=== PATIENT | female | born 1965 | race Caucasian/White ===

== ENCOUNTER 2021-11-09 18:24 | Inpatient (IN) ==
[2021-11-09 19:32] LABS: Basophils # (auto) 0.03 K/uL (0-0.2); Basophils % (auto) 0.4 %; Eosinophils # (auto) 0.04 K/uL (0-0.50); Eosinophils % (auto) 0.5 %; Hematocrit (blood only) 38.2 % (34.1-44.9); Hemoglobin 12.9 g/dl (12.0-16.0); Immature Granulocytes # (auto) 0.05 K/uL (0.00-0.02); Immature Granulocytes % (auto) 0.7 %; Lymphocytes # (auto) 1.19 K/uL (1.2-3.4); Lymphocytes % (auto) 16.2 %; Mean Corpuscular Hemoglobin 25.6 pg (25.0-34.0); Mean Corpuscular Hgb Conc 33.8 g/dL (32.0-36.0); Mean Corpuscular Volume 75.9 fL (80.0-100.0); Mean Platelet Volume 10.1 fL (9.4-12.3); Monocytes # (auto) 1.25 K/uL (0.24-0.82); Neutrophils % (auto) 65.2 %; Platelet Count 185 K/uL (130-400); RDW Coefficient of Variation 14.9 % (11.5-14.5); RDW Standard Deviation 40.9 fL (36.4-46.3); Red Blood Count 5.03 M/uL (3.93-5.22); White Blood Count 7.36 K/ul (4.8-10.8)
[2021-11-09 19:53] LABS: Albumin Globulin Ratio 0.9 (0.9-2); Albumin Level 3.4 gm/dl (3.4-5.0); BUN Creatinine Ratio 18.6 (10-20); Bilirubin,Total 0.6 mg/dl (0.2-1.0); Calcium 8.2 mg/dl (8.5-10.1); Creatinine Clr Calc Pharmacy 27.3 ml/min; Est GFR (African American) 34.2 ml/min; Est GFR (Non-African American) 29.5 ml/min; Globulin 3.6 gm/dl (2.5-4.0); Potassium 3.6 mmol/L (3.5-5.1)
[2021-11-09] MEDS ORDERED: SODIUM CHLORIDE 0.9% 1000ML 2,000 ML IV ONE (20:19)
--- NOTE | 2021-11-09 20:25 | Emergency Department Note ---
History of Present Illness General Chief complaint: Diarrhea Stated complaint: DIARRHEA Time Seen by Provider: 11/09/21 19:44 History of Present Illness Maximum Pain Intensity: 0 55-year-old female presents to the ED with a chief complaint of " kidney failure". The patient has been having diarrhea for about a week. She states that it soft stool about 3-4 times per day. The patient had an outpatient work- up today including a CT scan of the abdomen pelvis which showed some gastritis type findings according to the other female in the room with the patient. The patient has had some off-and-on fevers up to 101 according to the person in the room also. Blood work today was performed. The provider on-call called the patient and told him to come to the ER for kidney failure. Stool test were performed as well. Those results are pending. No additional complaints this time. The patient has had a decreased appetite but has been taking fluids. Past Med/Surg History Social History Smoking Status: Never smoker Feels Safe at Home: Yes Review of Systems A total of 10 systems reviewed and were otherwise negative Physical Exam Vital Signs Vital Signs - 24 hr 11/09/21 18:26 Temperature 36.7 C Temperature Source Temporal Artery Scan Pulse Rate 79 Respiratory Rate 18 Blood Pressure 112/72 Blood Pressure Mean 85 Pulse Oximetry 98 Oxygen Delivery Method Room Air Sepsis Recent Fever Within 48 Hours No Sepsis New/Unexplained Change in Mental Status No Sepsis Action Taken by Nursing No Action Required CONSTITUTIONAL/VITAL SIGNS: Reviewed / noted above. GENERAL: Non-toxic in appearance. INTEGUMENTARY: Warm, dry, and [place]. HEAD: Normocephalic. EYES: without scleral icterus or trauma. ENT/OROPHARYNX: clear and moist. LYMPHADENOPATHY/NECK: Is supple without lymphadenopathy or meningismus. RESPIRATORY: Clear to auscultation bilaterally. No increased work of breathing. CARDIOVASCULAR: Regular rate and rhythm. GI/ABDOMEN: Soft and nontender. No organomegaly or pulsatile mass. EXTREMITIES: Warm and well perfused. BACK: No CVA tenderness. NEUROLOGICAL: Intact without focal deficits. PSYCHIATRIC: normal affect. MUSCULOSKELETAL: Normally developed with good muscle tone. TRIAGE NURSING DOCUMENTATION REVIEWED. Course Administered Medications Sodium Chloride (Nss 1000ml) 2,000 mls @ 999 mls/hr IV .Q2H1M ONE Stop: 11/09/21 22:19 Last Admin: 11/09/21 20:29 Dose: 999 mls/hr Documented By: EMB Medical Decision Making Differential Diagnosis Differential includes acute coronary syndrome, myocardial infarction, CVA, TIA, anemia, infection, pneumonia, UTI, pyelonephritis, poor nutrition, dehydration, electrolyte disturbance,hypoglycemia. Medical Records Attestation: I reviewed the patient's medical records. Home Medications Current Medication List: was personally reviewed by me Laboratory Data Attestation: I reviewed the patient's lab results. Result diagrams: 11/09/21 19:23 11/09/21 19:23 Lab Results 11/09/21 11/09/21 Range/Units 19:23 19:23 WBC 7.36 (4.8-10.8) K/ul RBC 5.03 (3.93-5.22) M/uL Hgb 12.9 (12.0-16.0) g/dl Hct 38.2 (34.1-44.9) % MCV 75.9 L (80.0-100.0) fL MCH 25.6 (25.0-34.0) pg MCHC 33.8 (32.0-36.0) g/dL RDW Std Deviation 40.9 (36.4-46.3) fL RDW Coeff of Bobo 14.9 H (11.5-14.5) % Plt Count 185 (130-400) K/uL MPV 10.1 (9.4-12.3) fL Immature Gran % (Auto) 0.7 % Neut % (Auto) 65.2 % Lymph % (Auto) 16.2 % [place] % (Auto) 17.0 % Eos % (Auto) 0.5 % Baso % (Auto) 0.4 % Neut # (Auto) 4.80 (1.4-6.5) K/uL Lymph # (Auto) 1.19 L (1.2-3.4) K/uL [place] # (Auto) 1.25 H (0.24-0.82) K/uL Eos # (Auto) 0.04 (0-0.50) K/uL Baso # (Auto) 0.03 (0-0.2) K/uL Immature Gran # (Auto) 0.05 H (0.00-0.02) K/uL Sodium 123 L (136-145) mmol/L Potassium 3.6 (3.5-5.1) mmol/L Chloride 86 L (98-107) mmol/L Carbon Dioxide 25 (21-32) mmol/L Anion Gap 12 H (3-11) BUN 35 H (6-23) mg/dl Creatinine 1.88 H (0.6-1.2) mg/dl Est Cr Clr Drug Dosing 27.3 ml/min Est GFR ( Amer) 34.2 ml/min Est GFR (Non-Af Amer) 29.5 ml/min BUN/Creatinine Ratio 18.6 (10-20) Glucose 71 (70-99(Fasting)) mg/dl Calcium 8.2 L (8.5-10.1) mg/dl Total Bilirubin 0.6 (0.2-1.0) mg/dl AST 45 H (13-39) U/L ALT 23 (7-52) U/L Alkaline Phosphatase 150 H (34-104) U/L Total Protein 7.0 (6.0-8.3) gm/dl Albumin 3.4 (3.4-5.0) gm/dl Globulin 3.6 (2.5-4.0) gm/dl Albumin/Globulin Ratio 0.9 (0.9-2) Lipase 21 (11-82) U/L MDM Narrative Get it.Patient was sent to the [facility] for abnormal outpatient blood work concerning for kidney failure. The patient has been having diarrhea for about a week. Stool studies are pending per the outpatient provider. The patient CBC was unremarkable. The chemistry panel shows a low sodium of 123. The BUN is 35 and the creatinine is 1.88. AST is mildly elevated. The patient was treated with a liter normal saline IV. A second liter was also started. She was given some p.o. metronidazole for possible C. difficile. The patient will be seen by the hospitalist for further evaluation and care for her hyponatremia and acute kidney injury. Impression & Plan Diarrhea, Acute kidney injury, Acute dehydration, Acute hyponatremia Discharge Plan Visit Data Chief Complaint: Diarrhea Stated Complaint: DIARRHEA ED Provider: Santo Balderas Discharge Problem: Diarrhea, Acute kidney injury, Acute dehydration, Acute hyponatremia Patient Disposition: Being Evaluated by Hospitalist Forms Stand Alone Forms: [facility] Referrals Referrals: Gordy Montenegro, DO [Primary Care Provider] -
[2021-11-09] MEDS ORDERED: metroNIDAZOLE 500 MG TAB PO STA (21:28)
[2021-11-10 02:28] LABS: Influenza A virus by PCR Negative (Neg); Influenza B virus by PCR Negative (Neg); RSV by PCR Negative (Neg); SARS CoV2 RNA(COVID-19) InHosp NEGATIVE (Negative)
--- NOTE | 2021-11-10 03:10 | History and Physical Report ---
DATE OF ADMISSION: 11/10/2021. CHIEF COMPLAINT: Diarrhea. HISTORY OF PRESENT ILLNESS: This is a 55-year-old female with past medical history significant tachycardia, enlarged liver, GERD, presents with ongoing diarrhea since last Tuesday, several episodes a day. Denies any abdominal pain. Stools are loose. Denies any blood in the stool. She had an episode of fever last Tuesday when she went to urgent care, but since then, she has no fever. Denies any nausea or vomiting. Appetite is okay. She is able to eat okay. Denies any chest pain, no shortness of breath, no headache, no dizziness, no earache, no runny nose, no sore throat. No cough. Ambulating okay. No sickness in the family. She says she is COVID vaccinated and boosted. ALLERGIES: SULFA ANTIBIOTICS. PAST MEDICAL HISTORY: As mentioned above. PAST SURGICAL HISTORY: [place] cholecystectomy. MEDICATIONS: The patient is on vitamin D 25 mcg p.o. daily, Advil p.r.n., omeprazole 40 mg p.o. a.m., propranolol 160 mg p.o. p.m., ursodiol 500 mg p.o. b.i.d. FAMILY HISTORY: No family history on file. SOCIAL HISTORY: Single, no smoking, no alcohol, no drug use. REVIEW OF SYSTEMS: As per HPI. Rest of the review of systems is negative. PHYSICAL EXAMINATION: GENERAL: The patient is of moderate build, not in acute distress. VITAL SIGNS: Temperature 36.7, pulse 69, respiratory rate 17, blood pressure 117/71, oxygen 98% on room air. HEENT: Pupils equal, round and reactive to light. Oral mucosa moist. NECK: No JVD or neck masses. CARDIOVASCULAR: S1 and S2 heard. Regular rate and rhythm. No murmur, no gallop. RESPIRATORY SYSTEM: Normal AP diameter. No accessory muscle use. No wheezing, no crackles. ABDOMEN: Soft, bowel sounds present, nontender, no distention. CENTRAL NERVOUS SYSTEM: Cranial nerves II through XII are grossly intact, nonfocal. EXTREMITIES: No edema, no erythema. LABORATORY DATA: WBC 7.3, hemoglobin 12.9, hematocrit 38.2, platelets 185. Sodium 123, potassium 3.6, chloride 86, bicarbonate 25, BUN 35, creatinine 1.8, serum glucose 71, calcium 8.2, total bilirubin 0.6, AST 45, ALT 23, alkaline phosphatase 150, lipase 21. SARS-CoV-2 rapid test negative. The patient had CT scan with IV and oral contrast done as an outpatient showing pancolitis with moderate to marked circumferential thickening of the entire colon, likely infectious, suggest C. diff, but outpatient C. diff came back negative. ASSESSMENT AND PLAN: A 55-year-old female who presents with: 1. Diarrhea, outpatient CAT scan showing pancolitis, but C. diff done as outpatient was negative. We will repeat stools cultures. ER gave a dose of Flagyl We will monitor in the hospital. Consult GI. Monitor stool studies. Empirically start on p.o. vancomycin until stool studies come back. Clear liquid diet, IV fluids.GO consult. 2. Hyponatremia: Sodium 123, probably from the diarrhea. Follow serum osmolality. Check urine osmolality, urine sodium levels. Getting fluids. Repeat labs, BMP q. 6 hours. Consult glass mold repairer in am. Changed fluid to d5w@100ml/hr as repeat sodium was 131. 3. Acute kidney injury: From above, getting fluids. Follow repeat labs in the a.m. 4. History of tachycardia: On propranolol. 5. History of fatty liver. 6. Gastroesophageal reflux disease: On omeprazole. 7. Deep venous thrombosis prophylaxis: Lovenox. DISPOSITION: Closely monitor in the med tele. PT/OT prior to discharge. Social service to help with discharge planning. Job ID: [id number] MTDD
[2021-11-10] MEDS ORDERED: RASPBERRY SYRUP 5 ML UDP PO STA (03:27)
[2021-11-10] MEDS ORDERED: D5W AND NSS 1,000 ML IV SCH (03:27)
[2021-11-10] MEDS ORDERED: NITROGLYCERIN SL 0.4 MG/TAB TAB SL PRN (03:27)
[2021-11-10] MEDS ORDERED: VANCOMYCIN HCL 250 MG/5 ML SOLN PO STA (03:27)
[2021-11-10] MEDS ORDERED: ONDANSETRON INJ 2 MG/ML 2 ML VIAL IV PRN (03:27)
[2021-11-10 06:34] LABS: Basophils # (auto) 0.03 K/uL (0-0.2); Basophils % (auto) 0.6 %; Eosinophils # (auto) 0.04 K/uL (0-0.50); Eosinophils % (auto) 0.8 %; Hematocrit (blood only) 35.7 % (34.1-44.9); Hemoglobin 11.9 g/dl (12.0-16.0); Immature Granulocytes # (auto) 0.04 K/uL (0.00-0.02); Immature Granulocytes % (auto) 0.8 %; Lymphocytes # (auto) 0.93 K/uL (1.2-3.4); Lymphocytes % (auto) 18.4 %; Mean Corpuscular Hemoglobin 25.9 pg (25.0-34.0); Mean Corpuscular Hgb Conc 33.3 g/dL (32.0-36.0); Mean Corpuscular Volume 77.8 fL (80.0-100.0); Mean Platelet Volume 10.7 fL (9.4-12.3); Monocytes # (auto) 0.96 K/uL (0.24-0.82); Neutrophils # (auto) 3.05 K/uL (1.4-6.5); Neutrophils % (auto) 60.4 %; Platelet Count 196 K/uL (130-400); RDW Coefficient of Variation 15.1 % (11.5-14.5); RDW Standard Deviation 42.4 fL (36.4-46.3); Red Blood Count 4.59 M/uL (3.93-5.22); White Blood Count 5.05 K/ul (4.8-10.8)
[2021-11-10] MEDS ORDERED: DEXTROSE 5% 1,000 ML IV SCH (06:45)
[2021-11-10 06:59] LABS: BUN Creatinine Ratio 19.7 (10-20); Calcium 7.4 mg/dl (8.5-10.1); Creatinine Clr Calc Pharmacy 36.1 ml/min; Est GFR (African American) 48.1 ml/min; Est GFR (Non-African American) 41.5 ml/min; Magnesium 1.8 mg/dl (1.7-2.4); Potassium 3.1 mmol/L (3.5-5.1)
[2021-11-10] MEDS ORDERED: ENOXAPARIN INJ 30 MG/0.3 ML SYR SQ SCH (09:00)
[2021-11-10] MEDS: CHOLECALCIFEROL 1,000 UNITS 25 MCG TAB PO SCH (09:37)
[2021-11-10] MEDS: PANTOprazole 40 MG TAB PO SCH (09:37)
--- NOTE | 2021-11-10 09:50 | Nephrology Consultation ---
Date of Consultation November 10, 2021 Assessment & Plan (1) Acute kidney injury: stage 3 AVI w/ baseline creatinine 0.6 and OP creatinine 2.1 11/09. She had IV contrast on 11/09 as OP and OP stool studies PCR + for Salmonella -daily bmp -cont D5W at 100 mL/hr >> based on midday labs ivf changes as below -at risk for CKD to worsen given IV contrast exposure but so far she is improving -with heart murmur and hx of shaking chills > low threshold for blood cxs (2) Disorders of fluid, electrolyte, and acid-base balance: pt with hyponatremia, hypokalemia and presumptive AG metabolic acidosis, latter most likely d/t renal failure; had sNa 123 on 11/09 at 1900 and sodium corrected by 10 points in 10 hours > rate of correction too fast and she is appropriately on D5W for q 6h bmp check >> sodium not much better but a bit lower >> will add K to fluids and continue same rate -urine studies suggestive of polydipsia/low solute diet > these were obtained before (? or at least ordered) before D5W started -will give po K x 60 mEq x 1 now; given this am and still low > added K 40 mEq/L to D5W and increased rate to 125 mL /hr -goal SNa for this evening is 129 - turn off IVF if she reaches this; order in -needs eukalemia to correct sodium appropriately -no FR while on clear liquid diet -no indication at this time for ABG or other acidosis work up > will observe History of Present Illness Reason for Consultation: hyponatremia Requesting Physician: Dr Cosby Attending Physician: Nate Ye MD History of Present Illness 55 y/o F whom I'm asked to see for hyponatremia and AVI was admitted overnight for management of diarrhea w/ pancolitis and AVI. PMH includes GERD, tachycardia. Diarrhea began 1 wk back w/ one time F on 11/08; no n/v/abd pain/decreased po. No sick contacts. C diff negative. Her baseline creatinine is 0.6 spring 2021; OP labs yesterday notable for creatinine 2.1, sNa 123; also has salmonella on stool PCR. Had IV contrast and po for CT scan as OP yesterday showing likely infectious colitis as below. Feels better than at arrival. endorses intermittent F to 101 most recently on 11/08; states she did have shaking chills earlier in the day; no rash, no bloody stool; + generalized weakness. states she was drinking lots of water and not much else and not taking much solid food for about past week. no eating out recently; no contact w/ reptiles or fowl. Allergies Allergy/AdvReac Type Severity Reaction Status Date / Time Sulfa (Sulfonamide AdvReac stiffness Verified 11/10/21 00:34 Antibiotics) Home Medications Medication Instructions Recorded Confirmed Type cholecalciferol (vitamin D3) 25 25 mcg PO DAILY 11/10/21 11/10/21 History mcg (1,000 unit) tablet (Vitamin D3) ibuprofen 200 mg tablet (Advil) 400 mg PO Q6 PRN Pain 11/10/21 11/10/21 History omeprazole 40 mg capsule,delayed 40 mg PO QAM 11/10/21 11/10/21 History release propranolol 160 mg capsule,24 160 mg PO QPM 11/10/21 11/10/21 History hr,extended release ursodiol 500 mg tablet 500 mg PO AMHS 11/10/21 11/10/21 History Patient History Medical History (Updated 11/10/21 @ 10:22 by Colette Alvarez MD, PhD) GERD (gastroesophageal reflux disease) Tachycardia Social History Smoking Status: Never smoker Communication Ability: Effective marital status: Single Feels Safe at Home: Yes Assistive Devices: None Review of Systems Review of Systems: All systems reviewed & are unremarkable except as noted in HPI & below Physical Exam Constitutional: well developed, well nourished and cooperative; no acute distress Eyes: EOM intact bilaterally ENMT: Ears: no external ear abnormality Nose: no external nose abnormality Mouth: + dry oral mucous membranes Neck: no nuchal rigidity Respiratory: normal respiratory effort Auscultation: + diminished lung sounds Cardiovascular: Rate/Rhythm: regular rate and regular rhythm Heart Sounds: + murmur Extremities: no edema Gastrointestinal (Abdomen): Inspection/Auscultation: normal bowel sounds Percussion/Palpation: abdomen soft; abdomen nontender Musculoskeletal: Extremities: strength 5/5 throughout Skin: no rashes, warm and dry Neurologic: olivares, fluent speech, no tremor Results & Data ([facility]) Vital Signs (Past 12 Hours) Vital Signs Pulse Pulse Pulse Resp BP BP Pulse Ox 11/10/21 08:00 79 22 108/54 L 11/10/21 07:33 77 22 101/57 L 11/10/21 07:33 78 22 101/57 L 11/10/21 03:22 77 16 100/62 98 11/10/21 02:12 88 17 118/67 98 11/10/21 00:00 69 17 117/71 98 O2 Del Method 11/10/21 08:00 11/10/21 07:33 11/10/21 07:33 11/10/21 03:22 Room Air 11/10/21 02:12 Room Air 11/10/21 00:00 Laboratory Results 11/10/21 06:13 11/10/21 06:13 uOsm 149; Quinn [address] w/ IV con and po con 11/09 marked circumferential thickening through entire colon
--- NOTE | 2021-11-10 09:59 | Gastrointestinal Consultation ---
Date of Consultation November 10, 2021 Assessment & Plan (1) Diarrhea: Plan 55 year old female admitted with diarrhea x 1 week, colitis on outside imaging. She notes this AM she is feeling well, no BM in over 24 hours and wants to go home Agree with repeat c.diff testing and stool culture Suspect infectious colitis Can have diet as tolerated Will review results of imaging when available Trend kidney function IV fluid hydration No GI contraindication to diet or discharge once she is clinically improving and creatine begins to improve Will need OP GI follow up, plan for colonoscopy after follow up appt. Will sign off. Supervising Physician Co-Signing Physician Notes I saw and evaluated the patient. We were consulted for history of diarrhea from in addition to thickening of the colon seen on imaging study. The patient's symptoms from the standpoint of her diarrhea have improved significantly over the last 24 hours. She also had a stool culture which reveals Salmonella. Physical examination No obvious distress No abdominal tenderness Impression: The patient had diarrhea as a result of the Salmonella infection which appears to be improving specific interventions. As the patient's diarrhea has improved I would not recommend antibiotic coverage at the present time. The patient should have IV hydration as you are doing and anoscopy as needed as she had eye examination 3 years ago. Please call with any questions or concerns GI to sign off History of Present Illness Reason for Consultation: diarrhea Requesting Physician: Cassi Attending Physician: Nate Ye MD History of Present Illness 55 year old female wit history of GERD admitted with diarrhea, suspected AVI. Pt was seen and evaluated, chart reviewed. No abd pain. Notes that last week developed diarrhea. Suggests loose, watery stools 3-5 times daily. No black or bloody stools. No abd pain or cramping. Denies nausea, vomiting. Suggests no BM in over 24 hours. She notes she had labs, stool testing and CT as OP. She was told these showed colitis but evaluation was otherwise unremarkable. Colonoscopy: 3-4 years ago, OSH [facility] Allergies Allergy/AdvReac Type Severity Reaction Status Date / Time Sulfa (Sulfonamide AdvReac stiffness Verified 11/10/21 00:34 Antibiotics) Home Medications Medication Instructions Recorded Confirmed Type cholecalciferol (vitamin D3) 25 25 mcg PO DAILY 11/10/21 11/10/21 History mcg (1,000 unit) tablet (Vitamin D3) ibuprofen 200 mg tablet (Advil) 400 mg PO Q6 PRN Pain 11/10/21 11/10/21 History omeprazole 40 mg capsule,delayed 40 mg PO QAM 11/10/21 11/10/21 History release propranolol 160 mg capsule,24 160 mg PO QPM 11/10/21 11/10/21 History hr,extended release ursodiol 500 mg tablet 500 mg PO AMHS 11/10/21 11/10/21 History Patient History Medical History (Updated 11/10/21 @ 10:22 by Colette Alvarez MD, PhD) GERD (gastroesophageal reflux disease) Tachycardia Social History Smoking Status: Never smoker Communication Ability: Effective marital status: Single Feels Safe at Home: Yes Assistive Devices: None Review of Systems Review of Systems: All systems reviewed & are unremarkable except as noted in HPI & below Physical Exam Constitutional: WD/WN, vitals as above Neck: trachea midline, no thyromegaly Respiratory: normal respiratory effort Cardiovascular: Rate/Rhythm: regular rate and regular rhythm Gastrointestinal (Abdomen): normal bowel sounds, soft, nontender, no hepatosplenomegaly Skin: no rashes, warm and dry Results & Data ([facility]) Vital Signs (Past 12 Hours) Vital Signs Pulse Pulse Pulse Resp BP BP Pulse Ox 11/10/21 08:00 79 22 108/54 L 11/10/21 07:33 77 22 101/57 L 11/10/21 07:33 78 22 101/57 L 11/10/21 03:22 77 16 100/62 98 11/10/21 02:12 88 17 118/67 98 11/10/21 00:00 69 17 117/71 98 O2 Del Method 11/10/21 08:00 11/10/21 07:33 11/10/21 07:33 11/10/21 03:22 Room Air 11/10/21 02:12 Room Air 11/10/21 00:00 Laboratory Results 11/10/21 11/10/21 11/10/21 Range/Units 06:13 06:13 06:13 WBC 5.05 (4.8-10.8) K/ul RBC 4.59 (3.93-5.22) M/uL Hgb 11.9 L (12.0-16.0) g/dl Hct 35.7 (34.1-44.9) % MCV 77.8 L (80.0-100.0) fL MCH 25.9 (25.0-34.0) pg MCHC 33.3 (32.0-36.0) g/dL RDW Std Deviation 42.4 (36.4-46.3) fL RDW Coeff of Bobo 15.1 H (11.5-14.5) % Plt Count 196 (130-400) K/uL MPV 10.7 (9.4-12.3) fL Immature Gran % (Auto) 0.8 % Neut % (Auto) 60.4 % Lymph % (Auto) 18.4 % [place] % (Auto) 19.0 % Eos % (Auto) 0.8 % Baso % (Auto) 0.6 % Neut # (Auto) 3.05 (1.4-6.5) K/uL Lymph # (Auto) 0.93 L (1.2-3.4) K/uL [place] # (Auto) 0.96 H (0.24-0.82) K/uL Eos # (Auto) 0.04 (0-0.50) K/uL Baso # (Auto) 0.03 (0-0.2) K/uL Immature Gran # (Auto) 0.04 H (0.00-0.02) K/uL Sodium 133 L (136-145) mmol/L Potassium 3.1 L (3.5-5.1) mmol/L Chloride 100 (98-107) mmol/L Carbon Dioxide 20 L (21-32) mmol/L Anion Gap 13 H (3-11) BUN 28 H (6-23) mg/dl Creatinine 1.42 H D (0.6-1.2) mg/dl Est Cr Clr Drug Dosing 36.1 ml/min Est GFR ( Amer) 48.1 ml/min Est GFR (Non-Af Amer) 41.5 ml/min BUN/Creatinine Ratio 19.7 (10-20) Glucose 93 (70-99(Fasting)) mg/dl Osmolality 281 (280-300) mOsm/kg Calcium 7.4 L (8.5-10.1) mg/dl Magnesium 1.8 (1.7-2.4) mg/dl Total Bilirubin (0.2-1.0) mg/dl AST (13-39) U/L ALT (7-52) U/L Alkaline Phosphatase (34-104) U/L Total Protein (6.0-8.3) gm/dl Albumin (3.4-5.0) gm/dl Globulin (2.5-4.0) gm/dl Albumin/Globulin Ratio (0.9-2) Lipase (11-82) U/L Urine Osmolality (500-800) mOsm/kg Ur Random Sodium mmol/L SARS-CoV-2 (PCR) (Negative) Influenza Type A (PCR) (Neg) Influenza Type B (PCR) (Neg) RSV (RT-PCR) (Neg) SARS-CoV-2, RNA, NAAT (NEGATIVE) 11/10/21 11/10/21 11/10/21 Range/Units 04:35 04:35 01:51 WBC (4.8-10.8) K/ul RBC (3.93-5.22) M/uL Hgb (12.0-16.0) g/dl Hct (34.1-44.9) % MCV (80.0-100.0) fL MCH (25.0-34.0) pg MCHC (32.0-36.0) g/dL RDW Std Deviation (36.4-46.3) fL RDW Coeff of Bobo (11.5-14.5) % Plt Count (130-400) K/uL MPV (9.4-12.3) fL Immature Gran % (Auto) % Neut % (Auto) % Lymph % (Auto) % [place] % (Auto) % Eos % (Auto) % Baso % (Auto) % Neut # (Auto) (1.4-6.5) K/uL Lymph # (Auto) (1.2-3.4) K/uL [place] # (Auto) (0.24-0.82) K/uL Eos # (Auto) (0-0.50) K/uL Baso # (Auto) (0-0.2) K/uL Immature Gran # (Auto) (0.00-0.02) K/uL Sodium 131 L (136-145) mmol/L Potassium (3.5-5.1) mmol/L Chloride (98-107) mmol/L Carbon Dioxide (21-32) mmol/L Anion Gap (3-11) BUN (6-23) mg/dl Creatinine (0.6-1.2) mg/dl Est Cr Clr Drug Dosing ml/min Est GFR ( Amer) ml/min Est GFR (Non-Af Amer) ml/min BUN/Creatinine Ratio (10-20) Glucose (70-99(Fasting)) mg/dl Osmolality (280-300) mOsm/kg Calcium (8.5-10.1) mg/dl Magnesium (1.7-2.4) mg/dl Total Bilirubin (0.2-1.0) mg/dl AST (13-39) U/L ALT (7-52) U/L Alkaline Phosphatase (34-104) U/L Total Protein (6.0-8.3) gm/dl Albumin (3.4-5.0) gm/dl Globulin (2.5-4.0) gm/dl Albumin/Globulin Ratio (0.9-2) Lipase (11-82) U/L Urine Osmolality 149 L (500-800) mOsm/kg Ur Random Sodium 14 mmol/L SARS-CoV-2 (PCR) (Negative) Influenza Type A (PCR) (Neg) Influenza Type B (PCR) (Neg) RSV (RT-PCR) (Neg) SARS-CoV-2, RNA, NAAT (NEGATIVE) 11/10/21 11/09/21 11/09/21 Range/Units 01:45 21:45 19:23 WBC (4.8-10.8) K/ul RBC (3.93-5.22) M/uL Hgb (12.0-16.0) g/dl Hct (34.1-44.9) % MCV (80.0-100.0) fL MCH (25.0-34.0) pg MCHC (32.0-36.0) g/dL RDW Std Deviation (36.4-46.3) fL RDW Coeff of Bobo (11.5-14.5) % Plt Count (130-400) K/uL MPV (9.4-12.3) fL Immature Gran % (Auto) % Neut % (Auto) % Lymph % (Auto) % [place] % (Auto) % Eos % (Auto) % Baso % (Auto) % Neut # (Auto) (1.4-6.5) K/uL Lymph # (Auto) (1.2-3.4) K/uL [place] # (Auto) (0.24-0.82) K/uL Eos # (Auto) (0-0.50) K/uL Baso # (Auto) (0-0.2) K/uL Immature Gran # (Auto) (0.00-0.02) K/uL Sodium 123 L (136-145) mmol/L Potassium 3.6 (3.5-5.1) mmol/L Chloride 86 L (98-107) mmol/L Carbon Dioxide 25 (21-32) mmol/L Anion Gap 12 H (3-11) BUN 35 H (6-23) mg/dl Creatinine 1.88 H (0.6-1.2) mg/dl Est Cr Clr Drug Dosing 27.3 ml/min Est GFR ( Amer) 34.2 ml/min Est GFR (Non-Af Amer) 29.5 ml/min BUN/Creatinine Ratio 18.6 (10-20) Glucose 71 (70-99(Fasting)) mg/dl Osmolality (280-300) mOsm/kg Calcium 8.2 L (8.5-10.1) mg/dl Magnesium (1.7-2.4) mg/dl Total Bilirubin 0.6 (0.2-1.0) mg/dl AST 45 H (13-39) U/L ALT 23 (7-52) U/L Alkaline Phosphatase 150 H (34-104) U/L Total Protein 7.0 (6.0-8.3) gm/dl Albumin 3.4 (3.4-5.0) gm/dl Globulin 3.6 (2.5-4.0) gm/dl Albumin/Globulin Ratio 0.9 (0.9-2) Lipase 21 (11-82) U/L Urine Osmolality (500-800) mOsm/kg Ur Random Sodium mmol/L SARS-CoV-2 (PCR) NEGATIVE (Negative) Influenza Type A (PCR) Negative (Neg) Influenza Type B (PCR) Negative (Neg) RSV (RT-PCR) Negative (Neg) SARS-CoV-2, RNA, NAAT NEGATIVE (NEGATIVE) 11/09/21 Range/Units 19:23 WBC 7.36 (4.8-10.8) K/ul RBC 5.03 (3.93-5.22) M/uL Hgb 12.9 (12.0-16.0) g/dl Hct 38.2 (34.1-44.9) % MCV 75.9 L (80.0-100.0) fL MCH 25.6 (25.0-34.0) pg MCHC 33.8 (32.0-36.0) g/dL RDW Std Deviation 40.9 (36.4-46.3) fL RDW Coeff of Bobo 14.9 H (11.5-14.5) % Plt Count 185 (130-400) K/uL MPV 10.1 (9.4-12.3) fL Immature Gran % (Auto) 0.7 % Neut % (Auto) 65.2 % Lymph % (Auto) 16.2 % [place] % (Auto) 17.0 % Eos % (Auto) 0.5 % Baso % (Auto) 0.4 % Neut # (Auto) 4.80 (1.4-6.5) K/uL Lymph # (Auto) 1.19 L (1.2-3.4) K/uL [place] # (Auto) 1.25 H (0.24-0.82) K/uL Eos # (Auto) 0.04 (0-0.50) K/uL Baso # (Auto) 0.03 (0-0.2) K/uL Immature Gran # (Auto) 0.05 H (0.00-0.02) K/uL Sodium (136-145) mmol/L Potassium (3.5-5.1) mmol/L Chloride (98-107) mmol/L Carbon Dioxide (21-32) mmol/L Anion Gap (3-11) BUN (6-23) mg/dl Creatinine (0.6-1.2) mg/dl Est Cr Clr Drug Dosing ml/min Est GFR ( Amer) ml/min Est GFR (Non-Af Amer) ml/min BUN/Creatinine Ratio (10-20) Glucose (70-99(Fasting)) mg/dl Osmolality (280-300) mOsm/kg Calcium (8.5-10.1) mg/dl Magnesium (1.7-2.4) mg/dl Total Bilirubin (0.2-1.0) mg/dl AST (13-39) U/L ALT (7-52) U/L Alkaline Phosphatase (34-104) U/L Total Protein (6.0-8.3) gm/dl Albumin (3.4-5.0) gm/dl Globulin (2.5-4.0) gm/dl Albumin/Globulin Ratio (0.9-2) Lipase (11-82) U/L Urine Osmolality (500-800) mOsm/kg Ur Random Sodium mmol/L SARS-CoV-2 (PCR) (Negative) Influenza Type A (PCR) (Neg) Influenza Type B (PCR) (Neg) RSV (RT-PCR) (Neg) SARS-CoV-2, RNA, NAAT (NEGATIVE)
[2021-11-10] MEDS ORDERED: RASPBERRY SYRUP 5 ML UDP PO SCH (10:00)
[2021-11-10] MEDS ORDERED: VANCOMYCIN HCL 250 MG/5 ML SOLN PO SCH (10:00)
[2021-11-10] MEDS: CIPROFLOXACIN 500 MG TAB PO SCH ×2 (11:44→22:04)
[2021-11-10] MEDS: POTASSIUM CHLORIDE CRTAB 20 MEQ TABCR PO STA ×2 (11:48→12:57)
[2021-11-10 12:01] LABS: Calcium 7.3 mg/dl (8.5-10.1); Est GFR (African American) 54.5 ml/min; Potassium 3.2 mmol/L (3.5-5.1)
[2021-11-10] MEDS ORDERED: POTASSIUM CHLORIDE PWD 20 MEQ PACK PO STA (12:07)
[2021-11-10] MEDS ORDERED: POTASSIUM CHLORIDE 40 MEQ in DEXTROSE 5% 1,000 ML IV SCH (16:00)
[2021-11-10 20:11] LABS: BUN Creatinine Ratio 14.5 (10-20); Calcium 7.2 mg/dl (8.5-10.1); Creatinine Clr Calc Pharmacy 43.8 ml/min; Est GFR (African American) 60.8 ml/min; Est GFR (Non-African American) 52.4 ml/min; Potassium 4.3 mmol/L (3.5-5.1)
--- NOTE | 2021-11-10 20:33 | Communication Note ---
Date of Service: November 10, 2021 Patient seen and evaluated in her room. Mother is present at bedside. Chart reviewed. Patient admitted earlier this morning for AVI, hyponatremia. Reportedly outpatient stool studies positive for salmonella. Repeat stool PCR ordered here but not sent due to no further diarrheal episode Started ciprofloxacin for salmonella enteritis. Nephrology consulted for hyponatremia, AVI. Appreciate input Repeat Na this evening is 129. Will stop further IVF. Repeat BMP again tomorrow Full note in AM
[2021-11-10] MEDS: PROPRANOLOL HCL LA 80 MG CAPCR PO SCH (22:07)
[2021-11-11] MEDS: ACETAMINOPHEN 325 MG TAB PO PRN (00:04)
[2021-11-11 06:31] LABS: Adenovirus F 40/41 PCR Not Detected (NotDetected); Astrovirus PCR Not Detected (NotDetected); Campylobacter PCR Not Detected (NotDetected); Clostridium diff Toxin A/B PCR Not Detected (NotDetected); Cryptosporidium PCR Not Detected (NotDetected); Cyclospora cayetanensis PCR Not Detected (NotDetected); Entamoeba histolytica PCR Not Detected (NotDetected); Enteroaggregative E.coli(EAEC) Not Detected (NotDetected); Enteropathogenic E.coli (EPEC) Not Detected (NotDetected); Enterotoxigenic E.coli (ETEC) Not Detected (NotDetected); Giardia lamblia PCR Not Detected (NotDetected); Norovirus GI/GII PCR Not Detected (NotDetected); Plesiomonas shigelloides PCR Not Detected (NotDetected); Rotavirus A PCR Not Detected (NotDetected); Sapovirus PCR Not Detected (NotDetected); Shiga-like Toxin E.coli (STEC) Not Detected (NotDetected); Shigella/Enteroinvasive E.coli Not Detected (NotDetected); Vibrio cholerae PCR Not Detected (NotDetected); Vibrio species PCR Not Detected (NotDetected); Yersinia enterocolitica PCR Not Detected (NotDetected)
[2021-11-11 06:40] LABS: Salmonella PCR DETECTED (NotDetected)
[2021-11-11] MEDS: CIPROFLOXACIN 500 MG TAB PO SCH ×2 (07:51→20:11)
[2021-11-11] MEDS: CHOLECALCIFEROL 1,000 UNITS 25 MCG TAB PO SCH (07:52)
[2021-11-11] MEDS: ENOXAPARIN INJ 40 MG/0.4 ML SYR SQ SCH (07:52)
[2021-11-11] MEDS: PANTOprazole 40 MG TAB PO SCH (07:52)
[2021-11-11 08:14] LABS: BUN Creatinine Ratio 14.7 (10-20); Calcium 7.1 mg/dl (8.5-10.1); Creatinine Clr Calc Pharmacy 50.1 ml/min; Est GFR (African American) 71.7 ml/min; Est GFR (Non-African American) 61.9 ml/min; Magnesium 1.5 mg/dl (1.7-2.4); Phosphorus 2.2 mg/dl (2.5-4.9); Potassium 3.5 mmol/L (3.5-5.1)
[2021-11-11] MEDS: MAGNESIUM SULFATE / D5W 1 GM/100 ML BAG IV SCH ×2 (08:43→10:20)
[2021-11-11] MEDS ORDERED: POT PHOSPHATE MONOBASIC W/ SOD TAB PO SCH (09:00)
[2021-11-11] MEDS ORDERED: MAGNESIUM OXIDE 400 MG TAB PO SCH (09:00)
--- NOTE | 2021-11-11 10:32 | Nephrology Progress Note ---
Date of Service November 11, 2021 Assessment & Plan (1) Acute kidney injury: Plan: stage 3 AVI w/ baseline creatinine 0.6 and OP creatinine 2.1 11/09. She had IV contrast on 11/09 as OP and OP stool studies PCR + for Salmonella -daily bmp -D5W at 100 mL/hr w/ K appropriately stopped last evening -at risk for CKD to worsen given IV contrast exposure but so far she is imp roving -f/u pending blood cxs (2) Disorders of fluid, electrolyte, and acid-base balance: Plan: pt with hyponatremia, hypokalemia and presumptive AG metabolic acidosis, latter most likely d/t renal failure on presentation 11/10; acidosis has resolved; today w/ mild hyponatremia, hypokalemia, hypophosphatemia, hypomagnsemia had sNa 123 on 11/09 at 1900 and sodium corrected by 10 points in 10 hours > rate of correction too fast initially but this was appropriately adjusted/compensated; sNa today 131 -no IVF indicated for now; continue regular diet -will put on moderate fluid limit 2L / day; protein shakes don't count toward limit but need to encourage po intake >>encourage potato chips or/and V8 >> high K, high Na foods -pt started on neutra phos 2 tabs qid today > this is about 9 mEq K/day; also started on bid mag ox >lowered mag ox to daily to minimize diarrhea; lowered her neutra phos to bid as expect phos to improve now that she's on regular diet and pt w/ upset stomach/challenge to take pills >gave one time dose of K tabs 60 mEq -needs eukalemia to correct sodium appropriately -pls check bmp, phos, mag daily Admission and Anticipated Discharge Date Admission Date: November 10, 2021 Subjective feels much imrpoved; still poor po though; drinking a lot; no n/v/abd pain, no edema, no sob Review of Systems Review of Systems: All systems reviewed & are unremarkable except as noted in Subjective Physical Exam Constitutional: well developed, well nourished and cooperative; no acute distress Eyes: EOM intact bilaterally ENMT: Ears: no external ear abnormality Nose: no external nose abnormality Mouth: + dry oral mucous membranes Neck: no nuchal rigidity Respiratory: normal respiratory effort Auscultation: + diminished lung sounds Cardiovascular: Rate/Rhythm: regular rate and regular rhythm Extremities: no edema Gastrointestinal (Abdomen): Inspection/Auscultation: normal bowel sounds Percussion/Palpation: abdomen soft; abdomen nontender Musculoskeletal: Extremities: strength 5/5 throughout Skin: no rashes, warm and dry Results & Data ([facility]) Vital Signs (Past 12 Hours) Vital Signs Temp Pulse Pulse Resp BP Pulse Ox O2 Del Method 11/11/21 07:19 36.7 C 77 16 100/67 94 Room Air 11/11/21 02:06 36.8 C 90 18 101/68 92 Room Air 11/10/21 23:00 98 H 11/10/21 23:59 37.7 C H 118 H 16 102/70 93 Room Air Laboratory Results 11/10/21 06:13 11/11/21 07:23
[2021-11-11] MEDS ORDERED: POTASSIUM CHLORIDE CRTAB 20 MEQ TABCR PO ONE (14:12)
--- NOTE | 2021-11-11 16:56 | Hospitalist Progress Note ---
Date of Service November 11, 2021 Assessment & Plan (1) Salmonella enteritis: (2) Acute kidney injury: (3) Hyponatremia: (4) Hypophosphatemia: (5) Hypomagnesemia: Plan 55-year-old female who presents with diarrhea after eating [place] [employer] the day before ED presentation. Stool studies shows salmonella. Salmonella enteritis- still with multiple BM. Seen by GI- recommendations noted. On cipro D2. OP plan for colonoscopy per GI after follow up appt Hyponatremia- nephro managing. Na improving, now 131. recheck in am AVI- Cr 1.88->1. Resolved with IVF Hyomagnesemia- repleted, recheck in am Hypophosphatemia- repleted, recheck in am GERD- on PPI DVT ppx- sc lovenox Dispo- Anticipate discharge home in 1-2 days if electrolytes and symptoms improved Updated mom at bedside Admission and Anticipated Discharge Date Admission Date: November 10, 2021 Subjective States she had multiple BM last night but only one today so far. Does not have much of an appetite yet. No fever, chills, N/V. She would like to go home. Mom at bedside. Physical Exam Physical Exam: General: Lying comfortably in bed, not in distress, on room air HEENT: EOMI, JAKE, MMM Chest: Clear breath sounds bilaterally, no wheezes or crackles CVS: Regular rate and rhythm, normal heart sounds, no murmur Abdomen: Soft, non tender, not distended, normal bowel sounds Neuro: Awake, alert, oriented, conversing well, non focal Extremities: No cyanosis, clubbing or edema Results & Data Results & Data ([facility]) Vital Signs (Past 12 Hours) Vital Signs Temp Pulse Resp BP Pulse Ox O2 Del Method 11/11/21 15:41 37.2 C 79 17 105/69 96 Room Air 11/11/21 11:04 36.9 C 78 16 92/64 L 95 Room Air 11/11/21 07:19 36.7 C 77 16 100/67 94 Room Air Laboratory Results [facility] 11/10/21 11/11/21 19:24 07:23 Sodium 129 L 131 L Potassium 4.3 D 3.5 Chloride 100 102 Carbon Dioxide 23 23 BUN 17 15 Creatinine 1.17 1.02 Glucose 131 H 103 H Calcium 7.2 L 7.1 L Medications Administered Current Inpatient Medications Acetaminophen (Acetaminophen 325 Mg Tab) 650 mg PO Q4H PRN PRN Reason: Pain or Fever Stop: 12/10/21 03:26 Last Admin: 11/11/21 00:04 Dose: 650 mg Ciprofloxacin (Ciprofloxacin 500 Mg Tab) 500 mg PO BID [facility] Stop: 11/13/21 10:29 Last Admin: 11/11/21 07:51 Dose: 500 mg Enoxaparin Sodium (Enoxaparin Inj 40 Mg/0.4 Ml Syr) 40 mg SQ DAILY [place]; Pro tocol Stop: 12/11/21 08:59 Last Admin: 11/11/21 07:52 Dose: 40 mg Magnesium Oxide (Magnesium Oxide 400 Mg Tab) 400 mg PO DAILY [facility] Stop: 12/12/21 08:59 Miscellaneous (Ursodiol 500 Mg - Order Awaiting Action) 1 each N/A QS [facility] Stop: 12/10/21 07:59 Last Admin: 11/11/21 16:50 Dose: Not Given Nitroglycerin (Nitroglycerin Sl 0.4 Mg/Tab Tab) 0.4 mg SL UD PRN PRN Reason: Chest Pain Stop: 12/10/21 03:26 Ondansetron HCl (Ondansetron Inj 2 Mg/Ml 2 Ml Vial) 4 mg IV Q6H PRN PRN Reason: Nausea Stop: 12/10/21 03:26 Pantoprazole Sodium (Pantoprazole 40 Mg Tab) 40 mg PO QAM [facility] Stop: 12/10/21 08:59 Last Admin: 11/11/21 07:52 Dose: 40 mg Potassium Phosphate (Pot Phosphate Monobasic W/ Sod Tab) 2 tab PO BID [facility] Stop: 12/11/21 20:59 Propranolol HCl (Propranolol Hcl La 80 Mg Capcr) 160 mg PO QPM [facility] Stop: 12/10/21 20:59 Last Admin: 11/10/21 22:07 Dose: 160 mg Vitamin D (Cholecalciferol 1,000 Units 25 Mcg Tab) 1,000 units PO DAILY [facility] Stop: 12/10/21 08:59 Last Admin: 11/11/21 07:52 Dose: 1,000 units
[2021-11-11] MEDS: POT PHOSPHATE MONOBASIC W/ SOD TAB PO SCH (20:11)
[2021-11-11] MEDS: PROPRANOLOL HCL LA 80 MG CAPCR PO SCH (20:11)
[2021-11-12 08:05] LABS: Hematocrit (blood only) 36.4 % (34.1-44.9); Hemoglobin 11.9 g/dl (12.0-16.0); Mean Corpuscular Hemoglobin 25.7 pg (25.0-34.0); Mean Corpuscular Hgb Conc 32.7 g/dL (32.0-36.0); Mean Corpuscular Volume 78.6 fL (80.0-100.0); Platelet Count 263 K/uL (130-400); RDW Coefficient of Variation 15.9 % (11.5-14.5); RDW Standard Deviation 45.3 fL (36.4-46.3); Red Blood Count 4.63 M/uL (3.93-5.22); White Blood Count 6.08 K/ul (4.8-10.8)
[2021-11-12] MEDS: PANTOprazole 40 MG TAB PO SCH (08:31)
[2021-11-12] MEDS: POT PHOSPHATE MONOBASIC W/ SOD TAB PO SCH (08:31)
[2021-11-12] MEDS: CIPROFLOXACIN 500 MG TAB PO SCH (08:31)
[2021-11-12] MEDS: CHOLECALCIFEROL 1,000 UNITS 25 MCG TAB PO SCH (08:31)
[2021-11-12] MEDS: ENOXAPARIN INJ 40 MG/0.4 ML SYR SQ SCH (08:32)
[2021-11-12] MEDS: ACETAMINOPHEN 325 MG TAB PO PRN (08:34)
[2021-11-12 08:50] LABS: BUN Creatinine Ratio 14.9 (10-20); Calcium 7.5 mg/dl (8.5-10.1); Creatinine Clr Calc Pharmacy 58.9 ml/min; Est GFR (African American) 86.9 ml/min; Magnesium 1.9 mg/dl (1.7-2.4); Potassium 4.2 mmol/L (3.5-5.1)
[2021-11-12] MEDS ORDERED: MAGNESIUM OXIDE 400 MG TAB PO SCH (09:00)
--- NOTE | 2021-11-12 10:20 | Nephrology Progress Note ---
Date of Service November 12, 2021 Assessment & Plan (1) Acute kidney injury: Plan: resolving but severe stage 3 AVI w/ baseline creatinine 0.6 and OP creatinine 2.1 11/09. She had IV contrast on 11/09 as OP and OP stool studies PCR + for Salmonella -f/u pending blood cxs> NG at nearly 48 hr NEPHRO D/C RECS -hospital discharge appt in [facility] w/in 2-4 wks -nephro RN to place orders for BMP, phos, mag weekly x 3 -no nsaids after d/c -no need to d/c on mag or phos or K supplements -d/c on 2 L fluid limit and protein shakes don't count toward this; anticipate she will need these limits only temporarily (2) Disorders of fluid, electrolyte, and acid-base balance: Plan: pt had hyponatremia, hypokalemia and presumptive AG metabolic acidosis, latter most likely d/t renal failure on presentation 11/10; acidosis has resolved as have other electrolyte disorders except for mild hyponatremia; still on supplements for hypophosphatemia, hypomagnsemia had sNa 123 on 11/09 at 1900 > hypovolemic and appropriately correctedand sodium corrected by 10 points in 10 hours > rate of correction too fast initially but this was appropriately adjusted/compensated; sNa today 131 -as above Admission and Anticipated Discharge Date Admission Date: November 10, 2021 Subjective seen on rounds this am; not eating normally but improving and feels she will maintain po intake at home; 4-5 BM overnight. no light headed ness or weakness Review of Systems Review of Systems: All systems reviewed & are unremarkable except as noted in Subjective Physical Exam Constitutional: well developed, well nourished and cooperative; no acute distress Eyes: EOM intact bilaterally ENMT: Ears: no external ear abnormality Nose: no external nose abnormality Mouth: + dry oral mucous membranes Neck: no nuchal rigidity Respiratory: normal respiratory effort Auscultation: + diminished lung sounds Cardiovascular: Rate/Rhythm: regular rate and regular rhythm Heart Sounds: + murmur Extremities: no edema Gastrointestinal (Abdomen): Inspection/Auscultation: normal bowel sounds Percussion/Palpation: abdomen soft; abdomen nontender Musculoskeletal: Extremities: strength 5/5 throughout Skin: no rashes, warm and dry Neurologic: olivares, fluent speech, no tremor Results & Data ([facility]) Vital Signs (Past 12 Hours) Vital Signs Temp Pulse Pulse Resp BP Pulse Ox O2 Del Method 11/12/21 06:51 37.0 C 79 33 H 108/72 95 Room Air 11/12/21 02:52 37.4 C 87 32 H 117/83 94 Room Air 11/12/21 00:36 83 11/11/21 22:49 36.9 C 85 31 H 112/73 95 Room Air Laboratory Results 11/12/21 07:54 11/12/21 07:54
--- NOTE | 2021-11-12 13:32 | Discharge Summary ---
Date of Service November 12, 2021 Admission HPI Per Admitting Provider This is a 55-year-old female with past medical history significant tachycardia, enlarged liver, GERD, presents with ongoing diarrhea since last Tuesday, several episodes a day. Denies any abdominal pain. Stools are loose. Denies any blood in the stool. She had an episode of fever last Tuesday when she went to urgent care, but since then, she has no fever. Denies any nausea or vomiting. Appetite is okay. She is able to eat okay. Denies any chest pain, no shortness of breath, no headache, no dizziness, no earache, no runny nose, no sore throat. No cough. Ambulating okay. No sickness in the family. She says she is COVID vaccinated and boosted. Admission Exam Per Admitting Provider GENERAL: The patient is of moderate build, not in acute distress. VITAL SIGNS: Temperature 36.7, pulse 69, respiratory rate 17, blood pressure 117/71, oxygen 98% on room air. HEENT: Pupils equal, round and reactive to light. Oral mucosa moist. NECK: No JVD or neck masses. CARDIOVASCULAR: S1 and S2 heard. Regular rate and rhythm. No murmur, no gallop. RESPIRATORY SYSTEM: Normal AP diameter. No accessory muscle use. No wheezing, no crackles. ABDOMEN: Soft, bowel sounds present, nontender, no distention. CENTRAL NERVOUS SYSTEM: Cranial nerves II through XII are grossly intact, nonfocal. EXTREMITIES: No edema, no erythema. Principal Diagnosis Salmonella enteritis/colitis, dyselectrolytemia Discharge Exam General: Lying comfortably in bed, not in distress, on room air HEENT: EOMI, JAKE, MMM Chest: Clear breath sounds bilaterally, no wheezes or crackles CVS: Regular rate and rhythm, normal heart sounds, no murmur Abdomen: Soft, non tender, not distended, normal bowel sounds Neuro: Awake, alert, oriented, conversing well, non focal Extremities: No cyanosis, clubbing or edema Discharge Data Allergies Allergy/AdvReac Type Severity Reaction Status Date / Time Sulfa (Sulfonamide AdvReac stiffness Verified 11/10/21 00:34 Antibiotics) Consultations 11/10/21 08:00 Consult Gastroenterology Routine Consult Nephrology Routine Ordered Studies Laboratory Results WBC 6.08 K/ul (4.8-10.8) 11/12/21 07:54 RBC 4.63 M/uL (3.93-5.22) 11/12/21 07:54 Hgb 11.9 g/dl (12.0-16.0) L 11/12/21 07:54 Hct 36.4 % (34.1-44.9) 11/12/21 07:54 MCV 78.6 fL (80.0-100.0) L 11/12/21 07:54 MCH 25.7 pg (25.0-34.0) 11/12/21 07:54 MCHC 32.7 g/dL (32.0-36.0) 11/12/21 07:54 RDW Std Deviation 45.3 fL (36.4-46.3) 11/12/21 07:54 RDW Coeff of Bobo 15.9 % (11.5-14.5) H 11/12/21 07:54 Plt Count 263 K/uL (130-400) 11/12/21 07:54 MPV 9.0 fL (9.4-12.3) L 11/12/21 07:54 Immature Gran % (Auto) 0.8 % 11/10/21 06:13 Neut % (Auto) 60.4 % 11/10/21 06:13 Lymph % (Auto) 18.4 % 11/10/21 06:13 [place] % (Auto) 19.0 % 11/10/21 06:13 Eos % (Auto) 0.8 % 11/10/21 06:13 Baso % (Auto) 0.6 % 11/10/21 06:13 Neut # (Auto) 3.05 K/uL (1.4-6.5) 11/10/21 06:13 Lymph # (Auto) 0.93 K/uL (1.2-3.4) L 11/10/21 06:13 [place] # (Auto) 0.96 K/uL (0.24-0.82) H 11/10/21 06:13 Eos # (Auto) 0.04 K/uL (0-0.50) 11/10/21 06:13 Baso # (Auto) 0.03 K/uL (0-0.2) 11/10/21 06:13 Immature Gran # (Auto) 0.04 K/uL (0.00-0.02) H 11/10/21 06:13 Sodium 133 mmol/L (136-145) L 11/12/21 07:54 Potassium 4.2 mmol/L (3.5-5.1) 11/12/21 07:54 Chloride 104 mmol/L (98-107) 11/12/21 07:54 Carbon Dioxide 22 mmol/L (21-32) 11/12/21 07:54 Anion Gap 7 (3-11) 11/12/21 07:54 BUN 13 mg/dl (6-23) 11/12/21 07:54 Creatinine 0.87 mg/dl (0.6-1.2) 11/12/21 07:54 Est Cr Clr Drug Dosing 58.9 ml/min 11/12/21 07:54 Est GFR ( Amer) 86.9 ml/min 11/12/21 07:54 Est GFR (Non-Af Amer) 75.0 ml/min 11/12/21 07:54 BUN/Creatinine Ratio 14.9 (10-20) 11/12/21 07:54 Glucose 100 mg/dl (70-99(Fasting)) H 11/12/21 07:54 Osmolality 281 mOsm/kg (280-300) 11/10/21 06:13 Calcium 7.5 mg/dl (8.5-10.1) L 11/12/21 07:54 Phosphorus 3.0 mg/dl (2.5-4.9) 11/12/21 07:54 Magnesium 1.9 mg/dl (1.7-2.4) 11/12/21 07:54 Total Bilirubin 0.6 mg/dl (0.2-1.0) 11/09/21 19:23 AST 45 U/L (13-39) H 11/09/21 19:23 ALT 23 U/L (7-52) 11/09/21 19:23 Alkaline Phosphatase 150 U/L (34-104) H 11/09/21 19:23 Total Protein 7.0 gm/dl (6.0-8.3) 11/09/21 19:23 Albumin 3.4 gm/dl (3.4-5.0) 11/09/21 19:23 Globulin 3.6 gm/dl (2.5-4.0) 11/09/21 19:23 Albumin/Globulin Ratio 0.9 (0.9-2) 11/09/21 19:23 Lipase 21 U/L (11-82) 11/09/21 19:23 Urine Osmolality 149 mOsm/kg (500-800) L 11/10/21 04:35 Ur Random Sodium 14 mmol/L 11/10/21 04:35 Stl C. cayetanensis PCR Not Detected (NotDetected) 11/11/21 04:10 Stool Rotavirus A PCR Not Detected (NotDetected) 11/11/21 04:10 Stl Adenov F 40/41 PCR Not Detected (NotDetected) 11/11/21 04:10 Stool Astrovirus (PCR) Not Detected (NotDetected) 11/11/21 04:10 Stool Campylobacter PCR Not Detected (NotDetected) 11/11/21 04:10 Stl C. diff Tox A/B PCR Not Detected (NotDetected) 11/11/21 04:10 Stool Cryptosporidium PCR Not Detected (NotDetected) 11/11/21 04:10 Stl E.coli Shiga Tox PCR Not Detected (NotDetected) 11/11/21 04:10 Stl Enterotoxigenic E PCR Not Detected (NotDetected) 11/11/21 04:10 Stool EPEC (PCR) Not Detected (NotDetected) 11/11/21 04:10 Stool EAEC (PCR) Not Detected (NotDetected) 11/11/21 04:10 Stl E. histolytica PCR Not Detected (NotDetected) 11/11/21 04:10 Stool Giardia Lamblia PCR Not Detected (NotDetected) 11/11/21 04:10 Stool Salmonella PCR DETECTED (NotDetected) A* 11/11/21 04:10 Stool Sapovirus (PCR) Not Detected (NotDetected) 11/11/21 04:10 Stl P. shigelloides PCR Not Detected (NotDetected) 11/11/21 04:10 Stl Shigella/EIEC PCR Not Detected (NotDetected) 11/11/21 04:10 St Y.enterocolitica PCR Not Detected (NotDetected) 11/11/21 04:10 Stool Vibrio (PCR) Not Detected (NotDetected) 11/11/21 04:10 Stl Vibrio cholerae PCR Not Detected (NotDetected) 11/11/21 04:10 Stl Norovirus GI/GII PCR Not Detected (NotDetected) 11/11/21 04:10 SARS-CoV-2 (PCR) NEGATIVE (Negative) 11/10/21 01:45 Influenza Type A (PCR) Negative (Neg) 11/10/21 01:45 Influenza Type B (PCR) Negative (Neg) 11/10/21 01:45 RSV (RT-PCR) Negative (Neg) 11/10/21 01:45 SARS-CoV-2, RNA, NAAT NEGATIVE (NEGATIVE) 11/09/21 21:45 Hospital Course (1) Salmonella enteritis: (2) Acute kidney injury: (3) Hyponatremia: (4) Hypophosphatemia: (5) Hypomagnesemia: Plan 55-year-old female who presents with diarrhea after eating [place] [employer] the day before ED presentation. Stool studies shows salmonella. Salmonella enteritis/colitis- Stool GI biofire positive for salmonella, OP CT A/P with pancolitis. Clinically improving, no BM today yet. Seen by GI- rec ommendations noted. On cipro D2, continue 1 more day. OP plan for colonoscopy per GI after follow up appt. Tolerating oral intake without issues. No N/V/abd pain or fever. Hyponatremia- Na improving, now 133. Should continue to improve with improved oral intake. AVI- Cr 1.88->1.4->1.28->1-> 0.87. Resolved with IVF Hypomagnesemia- resolved Hypophosphatemia- resolved GERD- on PPI She is comfortable and stable for discharge. Recommended OP follow up with GI and nephrology. Total Time Total Time Spent Total Time Spent (In Minutes): 40 Discharge Plan Discharge Items Patient Disposition: Home - Self-Care Reason For Visit: DIARRHEA Discharge Diagnosis: Salmonella enteritis/colitis Activity: Resume your previous activity Non-emergency contact: Primary Care Provider Call non-emergency contact if: you have any medication questions, your symptoms worsen, your pain is not controlled and you have a fever Follow-up/Referrals: Gordy Montenegro, [Primary Care Provider] - Diet: Regular Addtl Attending Provider Instructions: Continue antibiotic cipro twice daily for 1 more day Follow up with family doctor in a week Follow up with kidney doctor with the blood work for electrolytes and kidney function. Follow up with the GI doctors for outpatient colonoscopy If fever, chills, worsening diarrhea or abdominal pain, nausea or vomiting, call your family doctor come back to the emergency Pending Studies at Discharge: No Stand-Alone Forms: [facility], Smoking Cessation Medications and DC Order Prescriptions: New ciprofloxacin HCl 500 mg Tablet 500 mg PO BID Qty: 3 0RF Continued propranolol 160 mg capsule,extended release 24 hr 160 mg PO QPM omeprazole 40 mg capsule,delayed release(DR/EC) 40 mg PO QAM ursodiol 500 mg tablet 500 mg PO [facility] cholecalciferol (vitamin D3) [Vitamin D3] 25 mcg (1,000 unit) Tablet 25 mcg PO DAILY Discontinued ibuprofen [Advil] 200 mg Tablet 400 mg PO Q6 PRN (Reason: Pain) Discharge Orders: Discharge Order (Routine); Ordered 11/12/21 Ordered By: Dieudonne Mckinney/Other Patient Handouts: Soft Winkler Diet Dc, Ed Gastroenteritis Salmonella Admission Data Admit Date/Time: 11/10/21 01:04 Attending Provider: Dieudonne Joy Admit Provider: Omer Cosby Primary Care Provider: Gordy Montenegro Other Providers: Portia Jhaveri ; Colette Alvarez Other Interventions: Discharge Summary Assessment (RN) Last Done: 11/12/21 11:04
== END 2021-11-12 13:33 | disposition home or self-care (01) | DRG 372 ==
LOC: ED 18:24 → EDINP 11-10 01:04 → SUATTDRO 11-10 01:04 → 2S 11-10 03:15